=== PATIENT | male | born 1975 | race Caucasian/White ===

== ENCOUNTER → 2023-12-08 06:24 | Day surgery (SDC) | payer OTHER, SELFPAY | LOC: GI 06:24 | PROVIDERS: ATTENDING PHYSICIAN Internal Medicine Gastroenterology | DX: K57.30 Diverticulosis of large intestine without perforation or abscess without bleeding (principal); K57.32 Diverticulitis of large intestine without perforation or abscess without bleeding; R12 Heartburn; K22.89 Other specified disease of esophagus; K31.89 Other diseases of stomach and duodenum; K22.70 Barrett's esophagus without dysplasia; K64.8 Other hemorrhoids | CPT/HCPCS: 45378; 43239; 88305; 88342 ==

== ENCOUNTER 2024-11-10 17:05 | Emergency (ER) | payer OTHER, SELFPAY ==
[2024-11-10 17:09] VITALS: BP 154/87
[2024-11-10 17:31] LABS: % Basophils 0.5 % (0-2); % Eosinophils 1.1 % (0-6); % Immature Granulocytes 0.1 % (0-0.5); % Lymphocytes 33.4 % (20.5-51.1); % Monocytes 9.3 % (1.7-9.3); % Neutrophils 55.6 % (42.2-75.2); Absolute Eosinophils 0.1 10^3/uL (0-0.7); Absolute Lymphocytes 2.5 10^3/uL (1.2-3.4); Absolute Monocytes 0.7 10^3/uL (0.1-0.6); Absolute Neutrophils 4.1 10^3/uL (1.4-6.5); Hematocrit 43.5 % (39.0-52.0); Hemoglobin 15.3 g/dL (13.0-18.0); Mean Corp Hgb Conc. 35.2 g/dL (33.0-37.0); Mean Corpuscular Hgb 31.9 pg (27.0-31.0); Mean Corpuscular Volume 90.8 fL (80.0-94.0); Mean Platelet Volume 9.2 fL (7.4-10.4); Nucleated Red Blood Cells % 0 % (-); Platelet Count 210 10^3/uL (130-400); Red Blood Cell Count 4.79 10^6/uL (4.70-6.10); Red Cell Dist. Width 12.4 % (11.5-14.5); White Blood Cell Count 7.4 10^3/uL (4.8-10.8)
[2024-11-10 17:42] LABS: ALT (SGPT) 14 U/L (0-50); AST (SGOT) 38 U/L (17-59); Albumin 4.2 g/dl (3.5-5.0); Alkaline Phosphatase 72 U/L (38-126); Blood Urea Nitrogen 19 mg/dl (9-20); Calcium 9.5 mg/dl (8.4-10.2); Carbon Dioxide 29 mmol/L (22-30); Chloride 102 mmol/L (98-107); Glucose 126 mg/dl (70-99); Lipase 80 U/L (23-300); Potassium 4.4 mmol/L (3.5-5.1); Sodium 138 mmol/L (135-145); Total Bilirubin 0.5 mg/dl (0.2-1.3); Total Protein 6.8 g/dl (6.3-8.2); eGFR > 60.00
[2024-11-10 18:19] VITALS: BP 141/102
--- NOTE | 2024-11-10 18:38 | ED.GENMED ---
History of Present Illness
General
Chief Complaint: Abdominal Pain
Source: patient
Exam Limitations: none
Time Seen by Provider: 11/10/24 18:21
History of Present Illness
History of Present Illness:
49-year-old otherwise healthy male presents complaining of intermittent abdominal fullness and bloated sensation since 2 months ago. Today the sensation got worse. It seemed to be more on the right side and occasionally radiates to the back. This
full sensation does tend to get worse with eating. He feels as though he is not moving his bowels well. He is finding himself using stool cleanses that help him go to the bathroom but do not help him feel better. No chest pain. No shortness of
breath. He has known diverticulosis. No fever. He rarely uses NSAIDs a couple coffee a day and drinks alcohol almost daily. He denies any dark black or tarry stools.
Phy Exam
Physical Exam
Physical Exam:
General: Well-appearing male no acute respiratory distress
HEENT: Normocephalic atraumatic
Heart: Regular rate and rhythm no murmurs
Lungs: Clear no wheeze
Abdomen is soft mildly tender to the epigastric and mid abdomen as well as to the right side. Normal bowel sounds mildly distended
Extremities: Nocyanosis
Course
Orders/Labs/Results
Orders:
Orders
11/10/24 17:23
Complete Blood Count/With Diff Urgent
Comprehensive Metabolic Panel Urgent
Lipase Urgent
11/10/24 18:37
CT Abd/pelvis W Iv Cont Urgent
Comment:
Reason For Exam: mid abdominal pain
Abnormal Lab Results
11/10/24
17:23
MCH 31.9 H pg
(27.0-31.0)
Absolute Monos (auto) 0.7 H 10^3/uL
(0.1-0.6)
Glucose 126 H mg/dl
(70-99)
11/10/24 17:23
11/10/24 17:23
Vital Signs
Initial and Last Documented VS:
Initial Vital Signs
Pulse Resp BP Pulse Ox
72 18 154/87 100
11/10/24 17:09 11/10/24 17:09 11/10/24 17:09 11/10/24 17:09
Last Documented Vital Signs
Temp Pulse Resp BP Pulse Ox
98.5 F 58 14 123/93 100
11/10/24 18:00 11/10/24 20:32 11/10/24 20:32 11/10/24 20:00 11/10/24 20:32
MDM/Problems Addressed
Differential Diagnosis Includes:
Abdominal fullness and early satiety. No weight loss. Question biliary colic versus gastritis versus peptic ulcer disease versus obstruction or pancreatitis
Check labs. CT pending.
*Critical Care Note
Total Time (30-74mins, 75-104mins- exclusive of procedures): Not Applicable
Update Note
Update Note:
CT shows horseshoe kidney but no sign of bowel obstruction or perforation. No evidence of diverticulitis. The appendix was visualized and is normal. Patient notes bloating sensation in the abdomen with early satiety but no weight loss. Question
gastritis versus ulcer versus constipation. No indication for admission will have patient follow-up with GI. Stable for discharge
ED Attending Note
-
Portions of this chart may have been created with voice recognition software.� Occasional wrong word or��sound alike� substitutions may have occurred due to the inherent limitations of voice recognition software.
Discharge Plan
Departure
Patient Disposition: Home (Routine Discharge)
Date of Disposition: 11/10/24
Time of Disposition: 20:46
Patient with high blood pressure during this ER visit?: No
Discharge Problem:
Abdominal fullness
Instructions: Gastritis (DC)
Referrals:
Zechariah Freire I., DO [Family Provider] -
Amena Beckham MD [Active] -
Activity Restrictions/Additional Instructions:
Continue with your bowel regimen. Return here for worsening symptoms otherwise consider follow-up with GI.
Interventions
Interventions:
*Risk Screen - Suicide Last Done: 11/10/24 18:00
*General Assessment Last Done: 11/10/24 18:00
*Neglect/Abuse Screening Last Done: 11/10/24 18:00
*ED- Fall Risk Assessment Last Done: 11/10/24 18:00
[facility]Dubbge[facility] Assessment Last Done: 11/10/24 18:00
Discharge Date and Time
Print Language: IRISH
[2024-11-10 18:55] VITALS: BP 123/81
[2024-11-10 19:00] VITALS: BP 118/88
[2024-11-10 20:00] VITALS: BP 123/93
[2024-11-10 21:02] VITALS: BP 139/89
== END 2024-11-10 21:04 | disposition home or self-care (01) ==
LOC: EMR 17:05
PROVIDERS: EMERGENCY PHYSICIAN Emergency Medicine; FAMILY PHYSICIAN Internal Medicine
DX: R14.0 Abdominal distension (gaseous) (principal)
CPT/HCPCS: 99285; 74177; 80053; 83690; 85025; Q9967